=== PATIENT | male | born 1965 | race Caucasian/White ===

== ENCOUNTER 2019-01-01 11:38 | Emergency (ER) | payer SELFPAY ==
[2019-01-01] MEDS ORDERED: Albuterol/Ipratropium 3.0-0.5 MG/3 ML Neb Soln NEB ONE (11:43)
--- NOTE | 2019-01-01 11:58 | EDM.PDOC ---
ED HPI GENERAL MEDICAL PROBLEM - General Chief Complaint: General Stated Complaint: hard time breathing Time Seen by Provider: 01/01/19 11:40 Source of Information: Reports: Patient History Limitations: Reports: No Limitations - History of Present Illness INITIAL COMMENTS - FREE TEXT/NARRATIVE: HISTORY AND PHYSICAL: History of present illness: Patient is a 53-year-old male presents to the emergency room due to chief complaints of swelling and "hard to get a full breath". Patient states that 3 days ago he started getting a lot of extremity swelling making it hard for him to bend over, along with causing aching in his ankles and knees. He states at the same time it has been hard for him to "get a full breath". He does not describe this as being short of breath. He associates this with the swelling, stating "when I bend over, it puts pressure on my lungs". Bending over aggravates his breathing. He did state that he took a "water pill" yesterday that was not prescribed to him and he is unsure of the name of it, however it's helped alleviated his swelling. He reports one incident like this happened one year ago in which he did the same thing and took the "water pill" to rid himself of edema. He has no history of asthma or heart comorbidities. His paternal grandfather suffered from heart failure. He states he has been exhausted. 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 Denies trouble voiding or defecating. Patient denies any fever, chills, headache, change in vision, syncope or near syncope. Denies any chest pain, back pain, shortness of breath or cough. Denies any abdominal pain, nausea, vomiting, diarrhea, constipation or dysuria. Has not noted any blood in urine or stool. Patient has been eating and drinking appropriately. He denies alcohol or drug abuse. Review of systems: As per history of present illness and below otherwise all systems reviewed and negative. Past medical history: As per history of present illness and as reviewed below otherwise noncontributory. Surgical history: As per history of present illness and as reviewed below otherwise noncontributory. Social history: See social history for further information Family history: As per history of present illness and as reviewed below otherwise noncontributory. Physical exam: General: Well-nourished and well-developed 53-year-old male. Alert and orientated. Nontoxic in appearance. Vital signs stable and have been reviewed by me. HEENT: Atraumatic, normocephalic, pupils equal and reactive bilaterally, negative for conjunctival pallor or scleral icterus, mucous membranes moist, trachea midline. No drooling or trismus noted. No meningeal signs. No hot potato voice noted. Lungs: Clear to auscultation, breath sounds equal bilaterally, chest nontender. Heart: S1S2, regular rate and rhythm without overt murmur Abdomen: Soft, nondistended, nontender. Negative for masses or hepatosplenomegaly. Negative for costovertebral tenderness. Skin: Intact, warm, dry. No lesions or rashes noted. Extremities: Atraumatic, moves all extremities per self without difficulty or deficits, negative for cords or calf pain. Neurovascular unremarkable. No edema noted to distal extremities. Strong pedal pulses bilaterally. Neuro: Awake, alert, oriented. Cranial nerves II through XII unremarkable. Cerebellum unremarkable. Motor and sensory unremarkable throughout. Exam nonfocal. Notes: X-ray shows no acute findings. Vital signs remain stable. Lab work is unremarkable. Patient voices that he would like Lasix prescribed to him. He states that his symptoms have been intermittent over the past 1-2 years. He states he has not seen a primary care provider for these symptoms prior. We discussed the need to follow-up and establish care to have this further evaluated and managed. Supportive care measures were reviewed and discussed. Voices understanding and is agreeable to plan of care. Denies any further questions or concerns at this time. Diagnostics: CBC, CMP, BNP, chest x-ray Therapeutics: Duo Neb Prescription: None Impression: Dyspnea Plan: 1. Reduce processed foods and added sodium (salt) intake. 2. May want to get YANIRA hose (compression stockings) to wear daily. Rest and elevated in evenings when you're able to. 3. Follow up with your primary care provider. Return to the ED as needed and as discussed. Definitive disposition and diagnosis as appropriate pending reevaluation and review of above. Bilateral Knee Pain Score (Numeric/FACES): 9 - Related Data Allergies Allergy/AdvReac Type Severity Reaction Status Date / Time No Known Allergies Allergy Verified 01/01/19 11:43 Home Meds: Home Meds . [No Known Home Meds] 01/01/19 [History] Past Medical History - Past Health History Medical/Surgical History: Denies Medical/Surgical History - Infectious Disease History Infectious Disease History: Reports: MRSA Social & Family History - Family History Family Medical History: Noncontributory - Tobacco Use Smoking Status *Q: Never Smoker - Recreational Drug Use Recreational Drug Use: No ED ROS GENERAL - Review of Systems Review Of Systems: ROS reveals no pertinent complaints other than HPI. ED EXAM, GENERAL - Physical Exam Exam: See Below (See dictation) Course - Vital Signs Last Recorded V/S: Last Vital Signs Temp 97.0 F 01/01/19 11:40 Pulse 66 01/01/19 11:40 Resp 18 01/01/19 11:40 BP 138/61 01/01/19 11:40 Pulse Ox 96 01/01/19 11:40 - Orders/Labs/Meds Orders: Active Orders 24 hr Category Date Time Status RT Aerosol Therapy [RC] ASDIRECTED Care 01/01/19 11:44 Active Labs: Laboratory Tests 01/01/19 01/01/19 01/01/19 Range/Units 12:22 12:22 12:22 WBC 5.75 (4.0-11.0) K/uL RBC 4.90 (4.50-5.90) M/uL Hgb 15.5 (13.0-17.0) g/dL Hct 43.0 (38.0-50.0) % MCV 87.8 (80.0-98.0) fL MCH 31.6 (27.0-32.0) pg MCHC 36.0 (31.0-37.0) g/dL RDW Std Deviation 40.1 (28.0-62.0) fl RDW Coeff of Harshad 13 (11.0-15.0) % Plt Count 230 (150-400) K/uL MPV 10.50 (7.40-12.00) fL Neut % (Auto) 56.1 (48.0-80.0) % Lymph % (Auto) 34.3 (16.0-40.0) % Cuming % (Auto) 6.4 (0.0-15.0) % Eos % (Auto) 3.0 (0.0-7.0) % Baso % (Auto) 0.2 (0.0-1.5) % Neut # (Auto) 3.2 (1.4-5.7) K/uL Lymph # (Auto) 2.0 (0.6-2.4) K/uL Cuming # (Auto) 0.4 (0.0-0.8) K/uL Eos # (Auto) 0.2 (0.0-0.7) K/uL Baso # (Auto) 0.0 (0.0-0.1) K/uL Nucleated RBC % 0.0 /100WBC Nucleated RBCs # 0 K/uL Sodium 141 (136-148) mmol/L Potassium 3.9 (3.5-5.1) mmol/L Chloride 105 (98-107) mmol/L Carbon Dioxide 26.1 (21.0-32.0) mmol/L BUN 15 (7.0-18.0) mg/dL Creatinine 1.1 (0.8-1.3) mg/dL Est Cr Clr Drug Dosing 79.27 mL/min Estimated GFR (MDRD) > 60.0 ml/min Glucose 140 H (74-106) mg/dL Calcium 9.0 (8.5-10.1) mg/dL Total Bilirubin 0.7 (0.2-1.0) mg/dL AST 39 H (15-37) IU/L ALT 51 (14-63) IU/L Alkaline Phosphatase 55 (46-116) U/L B-Natriuretic Peptide 14 (<100) PG/ML Total Protein 7.6 (6.4-8.2) g/dL Albumin 4.0 (3.4-5.0) g/dL Globulin 3.6 (2.6-4.0) g/dL Albumin/Globulin Ratio 1.1 (0.9-1.6) Meds: Medications Discontinued Medications Generic Name Dose Route Start Last Admin Trade Name Freq PRN Reason Stop Dose Admin Albuterol/Ipratropium 3 ml 01/01/19 11:43 01/01/19 12:02 Duoneb 3.0-0.5 Mg/3 Ml NEB 01/01/19 11:44 3 ml ONETIME ONE Administration Departure - Departure Time of Disposition: 13:14 Disposition: Home, Self-Care 01 Clinical Impression: Dyspnea Qualifiers: Dyspnea type: unspecified Qualified Code(s): R06.00 - Dyspnea, unspecified - Discharge Information Instructions: Shortness of Breath, Adult, [id number] Referrals: PCP,None [Primary Care Provider] - Forms: ED Department Discharge Additional Instructions: The following information is given to patients seen in the emergency department who are being discharged to home. This information is to outline your options for follow-up care. We provide all patients seen in our emergency department with a follow-up referral. The need for follow-up, as well as the timing and circumstances, are variable depending upon the specifics of your emergency department visit. If you don't have a primary care physician on staff, we will provide you with a referral. We always advise you to contact your personal physician following an emergency department visit to inform them of the circumstance of the visit and for follow-up with them and/or the need for any referrals to a consulting specialist. The emergency department will also refer you to a specialist when appropriate. This referral assures that you have the opportunity for follow-up care with a specialist. All of these measure are taken in an effort to provide you with optimal care, which includes your follow-up. Under all circumstances we always encourage you to contact your private physician who remains a resource for coordinating your care. When calling for follow-up care, please make the office aware that this follow-up is from your recent emergency room visit. If for any reason you are refused follow-up, please contact the [facility] Emergency Department at and asked to speak to the emergency department charge nurse. [facility] [address] [place] [id number] [facility] [address] [place] [id number] 1. Reduce processed foods and added sodium (salt) intake. 2. May want to get YANIRA hose (compression stockings) to wear daily. Rest and elevated in evenings when you're able to. 3. Follow up with your primary care provider. Return to the ED as needed and as discussed. - My Orders Last 24 Hours: My Active Orders 01/01/19 11:44 RT Aerosol Therapy [RC] ASDIRECTED - Assessment/Plan Last 24 Hours: My Active Orders 01/01/19 11:44 RT Aerosol Therapy [RC] ASDIRECTED
--- NOTE | 2019-01-01 12:26 | CR ---
Chest: Two views of the chest were obtained. Comparison: No previous chest x-ray. Heart size and mediastinum are normal. Lungs are clear. Bony structures are unremarkable. Impression: Nothing acute is seen on two-view chest x-ray. Diagnostic code #1 MTDD
[2019-01-01 12:53] LABS: BLOOD UREA NITROGEN,BUN 15 mg/dL (7.0-18.0); CARBON DIOXIDE,CO2 26.1 mmol/L (21.0-32.0); CHLORIDE,CL 105 mmol/L (98-107); GLUCOSE RANDOM 140 mg/dL (74-106); POTASSIUM,K 3.9 mmol/L (3.5-5.1); SODIUM,NA 141 mmol/L (136-148)
== END 2019-01-01 13:38 | disposition home or self-care (01) ==
LOC: MW.ED 11:38
DX: R06.00 Dyspnea, unspecified (principal)
CPT/HCPCS: 36415; 71046; 71046-26; 80053; 83880; 85025; 94640; 99285-25; J7620-GY